=== PATIENT | male | born 1990 | race Caucasian/White ===

== ENCOUNTER 2017-08-09 14:39 | Emergency (ER) | payer OTHER ==
[2017-08-09 14:50] VITALS: BP 164/88
== END 2017-08-09 18:23 | disposition home or self-care (01) ==
LOC: ED 14:39
DX: J02.9 Acute pharyngitis, unspecified (principal); J06.9 Acute upper respiratory infection, unspecified
CPT/HCPCS: J1100; J1885

== ENCOUNTER 2018-11-26 09:49 | Emergency (ER) | payer OTHER ==
[~2018-11-26] VITALS: Ht 180.3 cm; Wt 152.0 kg
[2018-11-26 09:56] VITALS: Ht 180.3 cm; Wt 152.0 kg
[2018-11-26 11:18] VITALS: BP 130/91
== END 2018-11-26 11:18 | disposition home or self-care (01) ==
LOC: ED 09:49
DX: S93.601A Unspecified sprain of right foot, initial encounter (principal); I10 Essential (primary) hypertension; X50.1XXA Overexertion from prolonged static or awkward postures, initial encounter; Y93.89 Activity, other specified; Y92.89 Other specified places as the place of occurrence of the external cause; Y99.8 Other external cause status

== ENCOUNTER 2018-12-31 17:42 | Emergency (ER) | payer OTHER ==
[~2018-12-31] VITALS: Ht 177.8 cm; Wt 153.8 kg
[2018-12-31 17:58] VITALS: Ht 177.8 cm; Wt 153.8 kg
[2018-12-31 18:41] VITALS: BP 135/61
== END 2018-12-31 18:39 | disposition home or self-care (01) ==
LOC: ED 17:42
DX: J06.9 Acute upper respiratory infection, unspecified (principal); I10 Essential (primary) hypertension

== ENCOUNTER 2019-04-24 14:44 | Emergency (ER) | payer OTHER ==
[~2019-04-24] VITALS: Ht 180.3 cm; Wt 149.2 kg
[2019-04-24 14:48] VITALS: Ht 180.3 cm; Wt 149.2 kg
[2019-04-24 16:15] VITALS: BP 114/69
== END 2019-04-24 16:15 | disposition home or self-care (01) ==
LOC: ED 14:44
DX: M25.511 Pain in right shoulder (principal); I10 Essential (primary) hypertension; E66.9 Obesity, unspecified; Z68.42 Body mass index [BMI] 45.0-49.9, adult